=== PATIENT | male | born 1970 | race Caucasian/White ===

== ENCOUNTER → 2018-09-18 | Day surgery (SDC) | payer BC ==
[2018-09-15 16:40] LABS: BASOPHILS % 0.5 % (0.0-1.0); EOSINOPHILS # (AUTO) 0.1 (0.0-0.4); EOSINOPHILS % 1.6 % (0.0-6.0); HEMATOCRIT 41.3 % (38.2-49.6); HEMOGLOBIN 14.6 g/dL (14.0-18.0); LYMPHOCYTES # (AUTO) 2.3 (1.0-3.2); LYMPHOCYTES % 30.2 % (18.0-39.1); MEAN CORPUSCULAR HEMOGLOBIN 29.4 pg (28-32); MEAN CORPUSCULAR HGB CONC 35.4 g/dL (31-35); MEAN CORPUSCULAR VOLUME 83.1 fL (81-99); MONOCYTES # (AUTO) 0.7 (0.2-0.8); MONOCYTES % 8.8 % (4.4-11.3); NEUTROPHILS # (AUTO) 4.4 (2.1-6.9); NEUTROPHILS % 58.6 % (38.7-80.0); PLATELET COUNT 238 x10e3/uL (140-360); RED BLOOD COUNT 4.97 x10e6/uL (4.3-5.7); RED CELL DISTRIBUTION WIDTH 13.1 % (11.7-14.4)
[2018-09-15 17:01] LABS: ANION GAP 14.8 mmol/L (8-16); CALCIUM 9.3 mg/dL (8.4-10.2); CREATININE, SERUM 1.38 mg/dL (0.72-1.25); POTASSIUM 3.8 mmol/L (3.5-5.1)
--- NOTE | 2018-09-15 17:07 | Diagnostic Imaging Report ---
EXAMINATION: CHEST 2 VIEWS INDICATION: Pre-op. COMPARISON: None FINDINGS: TUBES and LINES: None. LUNGS: Lungs are well inflated. Lungs are clear. There is no evidence of pneumonia or pulmonary edema. PLEURA: No pleural effusion or pneumothorax. HEART AND MEDIASTINUM: The cardiomediastinal silhouette is unremarkable. Tortuous thoracic aorta. BONES AND SOFT TISSUES: No acute osseous lesion. Soft tissues are unremarkable. UPPER ABDOMEN: No free air under the diaphragm. IMPRESSION: No acute radiographic abnormality. Signed by: Dr. Carolina King MD on 09/15/2018 5:03 PM
[~2018-09-18] MED LIST: ALLOPURINOL100 MG PO; BUPIVACAINE 0.25% 30ML SDV INJ ONE; CEFAZOLIN SOD 2 GM/D5W 50ML 50 ML IV ONE; DEXAMETHASONE SOD PHOS INJ 4 MG/ML VIAL ONE; FENTANYL CITRATE/PF 100MCG/2 ML INJ ONE; HYDROMORPHONE 2MG/ML 2 MG/ML ML ONE; IBUPROFEN PO; LIDOCAINE HCL 2% LOCAL INJ 5 ML SDV VIAL INJ ONE; MIDAZOLAM HCL 2 MG/2 ML VIAL ONE; MORPHINE SULFATE INJ 4 MG/ML INJ 1ML ONE; MUPIROCIN 2% OINT 22 GM TUBE ONE; ONDANSETRON HCL INJ 2MG/ML 2ML 2 MG/ML VIAL ONE; PROPOFOL IV EMULSION 10 MG/ML 20 ML VIAL ONE
--- OUTSIDE RECORDS SUMMARY | 2018-09-18 05:32 | XMS REPORT ---
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 Allergies, Adverse Reactions, Alerts This patient has no known allergies or adverse reactions. Medications This patient has no known medications. Results Test Description Test Time Test Comments Text Results Atomic Results Result Comments CHEST 2 VIEWS 2018-09-15 17:02:00 [place] [id number] Patient Name: RADAMES CARLIN MR #: [id number] : 1970 Age/Sex: 48/M Req #: [id number] Adm Physician: Ordered by: PINEDA MAGAÑA DPM Report #: [id number] Location: OR Room/Bed: Procedure: [id number] DX/CHEST 2 VIEWS Exam Date: 09/15/18 Exam Time: 1621 REPORT STATUS: Signed EXAMINATION: CHEST 2 VIEWS INDICATION: Pre-op. COMPARISON: None FINDINGS: TUBES and LINES: None. LUNGS: Lungs are well inflated. Lungs are clear. There is no evidence of pneumonia or pulmonary edema. PLEURA: No pleural effusion or pneumothorax. HEART AND MEDIASTINUM: The cardiomediastinal silhouette is unremarkable. Tortuous thoracic aorta. BONES AND SOFT TISSUES: No acute osseous lesion. Soft tissues are unremarkable. UPPER ABDOMEN: No free air under the diaphragm. IMPRESSION: No acute radiographic abnormality. Signed by: Dr. Vero Hathaway MD on 09/15/2018 5:03 PM Dictated By: VERO HATHAWAY MD 02 Transcribed By: ERNESTO on 09/15/181702 COPY TO: PINEDA MAGAÑA DPM
[2018-09-18 10:00] VITALS: BP 120/90
--- NOTE | 2018-09-23 13:43 | Operative Report ---
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 TITLE OF THE OPERATION: Modified Rakesh bunionectomy with excision of gouty tophi and remodeling of the first metatarsophalangeal joint, right foot. PROCEDURE IN DETAIL: The patient was taken to the operating room in a mildly sedative state, placed on the operating table in supine position. Following induction of general anesthetic, the right lower extremity was elevated to 60 degrees to exsanguinate before inflating the pneumatic thigh tourniquet to 350 mmHg for hemostasis. The right lower extremity was placed on the operating table procedure. Procedure #1 is modified Rakesh bunionectomy, right foot and debridement of the gouty tophi and remodeling. A linear longitudinal incision was made overlying the first metatarsophalangeal joint of the right foot. The incision was deepened via sharp and blunt dissection down to the level of the dorsal capsular structure. Care was taken to identify and retract all vital structures encountered. Head of the first metatarsal surgical site, remodeled utilizing oscillating saw. The conjoined tendon of the adductor hallucis muscle was identified and tenotomized. The head of the first metatarsal was noted to be somewhat dystrophic with a significant amount of inflammatory tissue present, a thorpe appearance to the medial and dorsal capsule were noted and the synovium was hypertrophic in nature. There was several deposits of gouty tophi within the joint itself. Those were all irrigated and removed. The deeper tissue was debrided with regard to the inflammatory thorpe nonviable tissue. A [id number] V osteotomy was placed with apex distally and base proximally, which allowed for decompression and relative shift lateralward of the head on the more proximal segment, which was then impacted and stabilized with 2 cortical bone screws. The area was further remodeled with oscillating saw, rotatory bur, irrigated once again. Deep closure and soft tissue repair with 3-0 Vicryl, subcutaneous closure with 4-0 Vicryl and skin closure with 4-0 nylon. The patient tolerated both anesthesia and procedure very well and left the operating room with vital signs stable in apparent satisfactory condition having tolerated both anesthetic and procedure very well. ANN Gray/ANDREW /[id number]
== END | disposition home or self-care (01) ==
LOC: OR 05:29
PROVIDERS: ATTEND Podiatrist Foot Surgery
DX: M20.11 Hallux valgus (acquired), right foot (principal); M10.9 Gout, unspecified; M79.671 Pain in right foot; Z01.810 Encounter for preprocedural cardiovascular examination; Z01.812 Encounter for preprocedural laboratory examination; Z01.811 Encounter for preprocedural respiratory examination
CPT/HCPCS: 28296; 36415; 71046; 80048; 85025; 93005; C1713 ×2; J0690; J1100; J1170; J2001; J2250; J2270; J2405; J2704